=== PATIENT | male | born 1985 | race Caucasian/White ===

== ENCOUNTER 2016-11-24 20:14 | Emergency (ER) | END 2016-11-25 00:21 | disposition home or self-care (01) | DX: R11.10 Vomiting, unspecified (principal); R10.13 Epigastric pain | CPT/HCPCS: 36415; 74176; 76705; 80053; 80306; 80307; 81001; 83690; 85025; 86850; 86900; 86901; 96374; 96375; C9113; J2270; J2765; J7030; Z7502 ==